=== PATIENT | female | born 1995 | race Two or more races ===

== ENCOUNTER 2018-04-12 16:12 | Emergency (ER) | payer MEDICAID ==
[2018-04-12] MEDS ORDERED: Simethicone 20 mg/0.3 mL 30mL Bottle PO ONE (16:55)
[2018-04-12 16:59] LABS: URINE SOURCE CLEAN C
[2018-04-12] MEDS ORDERED: Maalox 30 mL Cup ONE (16:59)
[2018-04-12 17:02] LABS: URINE BILIRUBIN NEGATIVE (NEGATIVE); URINE BLOOD NEGATIVE (NEGATIVE); URINE GLUCOSE (UA) NEGATIVE (NEGATIVE); URINE KETONE NEGATIVE (NEGATIVE); URINE LEUKOCYTE ESTERASE NEGATIVE (NEGATIVE); URINE NITRATE NEGATIVE (NEGATIVE); URINE PH 6.5 (4.6 - 8.0); URINE PROTEIN NEGATIVE (NEGATIVE); URINE UROBILINOGEN 0.2 E.U./dL (0.2 - 1.0)
[2018-04-12] MEDS ORDERED: Maalox 30 mL Cup PO ONE (17:02)
--- NOTE | 2018-04-12 17:04 | ED Physician Chart ---
ED Chief Complaint/HPI - Patient Information Date Seen:: 04/12/18 Time Seen:: 16:58 Chief Complaint:: abd pain History of Present Illness:: 22 yr old female with epigastric pain for 3 days some diarhea no vomiting no fever ate some spicy foods and is 8 wks and had ultrasound of preganancy and was told it was ok Allergies:: Allergies Allergy/AdvReac Type Severity Reaction Status Date / Time No Known Allergies Allergy Verified 04/12/18 16:17 Vitals:: Vital Signs - 8 hr 04/12/18 16:15 Temp 97.0 F HR 82 RR 16 BP 137/89 O2 Sat % 98 ED Review of Systems - Review of Systems General/Constitutional: No fever, No chills Skin: No skin lesions Head: No headache Eyes: No loss of vision ENT: No earache Neck: No neck pain Cardio Vascular: No chest pain Pulmonary: No SOB GI: Nausea, Pain Manager Medicaid: No vaginal discharge, No abnormal vaginal bleed, No contraction Musculoskeletal: No bone or joint pain Psychiatric: No prior psych history Hematopoietic: No bruising Allergic/Immuno: No urticaria Neurological: No syncope ED Past Medical History - Past Medical History Past Medical History: No significant medical hx Family Medical History - Family Member Mother History Unknown: Yes ED Physical Exam - Physical Examination General/Constitutional: Awake, Well-developed, well-nourished, Alert Head: Atraumatic Eyes: Lids, conjuctiva normal Skin: Nl inspection ENMT: External ears, nose nl Neck: Full ROM w/o pain Respiratory: Nl effort/Exclusion Cardio Vascular: No murmur, gallop, rubs Other GI comments:: epig tend and abd pain : No CVA tenderness Extremities: No tenderness or effusion Neuro/Psych: Alert/oriented ED Septic Shock - . Is Septic Shock (SBP<90, OR Lactate>4 mmol\L) present?: No - <6hrs of presentation: Vital Signs: Vital Signs - 8 hr 04/12/18 16:15 Temp 97.0 F HR 82 RR 16 BP 137/89 O2 Sat % 98
[2018-04-12 17:36] LABS: URINE CLARITY CLEAR (CLEAR); URINE COLOR YELLOW; URINE MICROSCOPIC INDICATED? YES
[2018-04-12 17:38] LABS: URINE BACTERIA FEW /hpf (NONE SEEN); URINE EPITHELIAL CELLS MODERATE /lpf (FEW); URINE RBC 0-2 /hpf (0-5); URINE WBC 0-2 /hpf (0-5)
[2018-04-12 17:39] LABS: URINE AMORPHOUS SEDIMENT FEW URATES (NONE SEEN)
--- NOTE | 2018-04-13 07:53 | Diagnostic Imaging Report ---
Abdominal ultrasound HISTORY: Pain The liver appears somewhat generous in size. No focal lesions. The exam of the gallbladder demonstrates intraluminal echogenic densities with acoustic shadowing. Findings consistent with cholelithiasis. No biliary dilatation. The pancreas cannot be seen due to bowel gas. The kidneys appear normal bilaterally. The spleen is normal in size. An approximate 2.5 cm sonolucent lesion consistent with a cyst is seen. No other retroperitoneal or intra-abdominal abnormalities. IMPRESSION: 1. Findings consistent with cholelithiasis 2. Findings consistent with a splenic cyst.
--- NOTE | 2018-04-13 08:10 | Diagnostic Imaging Report ---
OB ultrasound HISTORY: Pain Transvaginal sonographic technique utilized. There is a single intrauterine gestation with a well-defined sac. A pole is seen. cardiac motion is noted (185 BPM). The crown-rump length equals 2.08 cm. This is consistent with a sonographic age of 8 weeks 5 days +/- 1 week. No other abnormal masses or fluid collections seen in the pelvis. IMPRESSION: 1. Single intrauterine gestation with a sonographic age of 8 weeks 5 days +/- 1 week
== END 2018-04-12 19:19 | disposition home or self-care (01) ==
LOC: EDBD 16:12 → ER 16:12
DX: O99.611 Diseases of the digestive system complicating pregnancy, first trimester (principal); K80.20 Calculus of gallbladder without cholecystitis without obstruction; Z3A.09 9 weeks gestation of pregnancy
CPT/HCPCS: 76700-TC; 76801-TC; 81001-TC; 81025-TC